=== PATIENT | male | born 1955 | race Asian ===

== ENCOUNTER 2021-04-23 18:18 | Emergency (ER) | payer MEDICARE ==
[~2021-04-23] VITALS: Ht 162.6 cm; Wt 59.1 kg
[2021-04-23 18:25] VITALS: BP 140/78
[2021-04-23] MEDS ORDERED: tetanus & diphtheria toxoid (Td) vaccine 0.5ml IMVAC ONE (19:00)
[2021-04-23] MEDS ORDERED: SULF1TAB49 PO (19:04)
[2021-04-23] MEDS ORDERED: TETanus/Pertussis (Acell)/Diphther VAC/PF (Tdap-Adult) 0.5ml syringe IMVAC ONE (19:05)
--- NOTE | 2021-04-23 19:38 | NUR ---
patient received discharge instructions and rx and wound care instructions and acknowledged understanding. patient dc home with family.
== END 2021-04-23 19:37 | disposition home or self-care (01) ==
LOC: ER 18:19
DX: L03.012 Cellulitis of left finger (principal); Z79.899 Other long term (current) drug therapy
CPT/HCPCS: 10060; 90471; 90715; 99283